=== PATIENT | female | born 1995 ===

== ENCOUNTER 2019-10-24 14:06 | Inpatient (IN) | payer OTHER ==
[2019-10-24 14:41] VITALS: BMI 32.9
[2019-10-24] MEDS ORDERED: Promethazine HCl 25 MG/ML VIAL IM PRN (15:40)
[2019-10-24] MEDS ORDERED: Zolpidem Tartrate 5 MG TAB PO PRN (15:40)
[2019-10-24] MEDS ORDERED: hydrALAZINE 20 MG/ML VIAL SLOW IVP PRN ×2 (15:40→15:43)
[2019-10-24] MEDS ORDERED: Ondansetron PF 4 MG/2 ML Vial IVP PRN (15:40)
[2019-10-24] MEDS ORDERED: Docusate 100 MG CAP PO PRN (15:40)
[2019-10-24] MEDS: Lactated Ringer's 1,000 ML IV SCH ×2 (16:58→23:24)
[2019-10-24] MEDS: Betamet Acet/Betamet Na Ph 30 MG/5 ML VIAL IM SCH (17:07)
[2019-10-24 17:26] LABS: Hemoglobin 9.8 g/dL (12.0-16.0); Mean Corpuscular HGB CONC 33.4 g/dL (32.0-36.0); Mean Corpuscular Hemoglobin 29.5 pg (27.0-31.0); Mean Corpuscular Volume 88.3 fL (78.0-98.0); Mean Platelet Volume 9.8 fL (7.4-10.4); Platelet Count 192 thou/uL (130-400); RBC Distribution Width 12.5 % (11.5-14.5); Red Blood Cell (RBC) Count 3.33 mill/uL (4.20-5.40); White Blood Cell (WBC) Count 9.8 thou/uL (4.8-10.8)
[2019-10-24 17:51] LABS: ALT (SGPT) Less than 7 U/L (8-55); AST (SGOT) 11 U/L (5-34); Alkaline Phosphatase 213 U/L (40-110); Anion Gap 12 mmol/L (10-20); BUN (Urea Nitrogen) 8 mg/dL (7.0-18.7); Bilirubin, Total 0.3 mg/dL (0.2-1.2); Calc. Creatinine Clearance 166 mL/min (70-130); Calcium 8.4 mg/dL (7.8-10.44); Carbon Dioxide 20 mmol/L (22-29); Chloride 109 mmol/L (98-107); Estimated GFR-MDRD Greater than 90; Glucose 88 mg/dL (70-105); Potassium 3.6 mmol/L (3.5-5.1); Sodium 137 mmol/L (136-145)
[2019-10-24 18:14] LABS: HBSAg Index 0.18 S/CO (0-0.99); Hep B Surf Ag Non-Reactive S/CO (NonReactive); Syphilis Antibody Nonreactive (Nonreactive); Syphilis Antibody Index 0.03 S/CO (<1.00 Non-Reactive)
[2019-10-24] MEDS: Acetaminophen 500 MG TAB PO PRN (18:59)
[2019-10-25] MEDS: Acetaminophen 500 MG TAB PO PRN ×2 (07:33→16:32)
[2019-10-25] MEDS ORDERED: Prenatal Vitamin 1 TAB PO SCH (09:00)
--- NOTE | 2019-10-25 13:17 | PDOC.LDHP ---
Labor and Delivery H&P HPI: 24 y/o at 32 and 6/7 weeks presents from clinic after 149/95 BP and 2+ urine protein. Patient has a history of eclampsia last with stat c- section. She mentions some headaches over the weekend, and not feeling herself. She is being admitted for preeclamsia labs and in-patient steroid course for preeclampsia in this term . She was taking ASA 81mg up to this point as prophylaxis. Current gestational age (weeks): 32 Due date: 12/13/19 Grav: 2 Para: 1 Current complications: preeclampsia without severe features Abnormal US findings: No Current medications: pre- vitamins Previous surgical history: low tranverse CS Allergies/Adverse Reactions: Allergies Allergy/AdvReac Type Severity Reaction Status Date / Time No Known Allergies Allergy Verified 10/24/19 14:38 Social history: none - Physical Exam Vital signs reviewed and normal: yes General: NAD, resting Heart: RRR Lungs: CTAB Abdomen: gravid Extremeties: no edema FHT: category 1 - Assessment 1. Di/Di Twins at 32 and 6/7 weeks 2. Suspected Preeclampsia without severe features 3. Hx of Eclampsia - Plan -: 1. Admit for Preeclampsia testing 2. BMZ course ordered x 2 doses 3. Repeat BPP in the morning 4. Repeat planned for delivery when indicated
--- NOTE | 2019-10-25 14:07 | ULT ---
BIOPHYSICAL PROFILE: 10/25/19 HISTORY: Twin with pre-eclampsia. TECHNIQUE: Multiplanar carter scale and color Doppler images were obtained in a transabdominal ultrasound. FINDINGS: heart rates were detected at 130 beats per minute in baby A which is seen posteriorly and baby B at 125 beats per minute which is seen anteriorly. Baby A and baby B both scored a 6 of 8 on biophysical profile with a 0 given for tone. NANETTE is 6 .5 cm, which is normal. IMPRESSION: Biophysical profile of 6 of 8 for baby A and baby B. POS: [facility]
[2019-10-25] MEDS: Lactated Ringer's 1,000 ML IV SCH (16:32)
[2019-10-25] MEDS ORDERED: Magnesium Sulfate 20 gm/500 ml 20 GM/500 ML BAG ONE (17:12)
[2019-10-25] MEDS: Betamet Acet/Betamet Na Ph 30 MG/5 ML VIAL IM SCH (17:28)
[2019-10-25] MEDS ORDERED: Calcium Gluc 4.6 MEQ/10 ML (100 MG/ML) SLOW IVP PRN (17:57)
[2019-10-25] MEDS ORDERED: Magnesium Sulfate 20 GM/WATER 500 ML BAG IVPB SCH (18:00)
--- NOTE | 2019-10-25 18:07 | PDOC.LDPN ---
Labor & Delivery Progress Note - Subjective Subjective: comfortable - Objective Vital signs reviewed and normal: yes General: NAD, resting Uterine fundus: non tender -: Patient has complained of worsening headache today, which has not improved with Tylenol or eating. She notes this is a very similar onset to her last eclamptic seizure. We will go ahead and start Magnesium Sulfate 4g load, 2g/hr, and try and finish out 48 hour steroid window. Repeat is tentatively scheduled for 1700 tomorrow.
[2019-10-25 18:37] LABS: SARS-CoV-2 MS2 Positive; SARS-CoV-2 N Gene Negative; SARS-CoV-2 S Gene Negative; SARS-CoV-2 orf1ab Negative
[2019-10-25] MEDS ORDERED: Bicitra 30 ML UDCUP ONE (20:54)
[2019-10-25] MEDS ORDERED: MORPHINE 5 MG/10 ML PF VIAL ONE (20:55)
[2019-10-25] MEDS ORDERED: Fentanyl 100 MCG/2 ML VIAL ONE (20:55)
[2019-10-25] MEDS ORDERED: Oxytocin 10 UNITS/ML VIAL ONE (20:56)
[2019-10-25] MEDS ORDERED: Ondansetron PF 4 MG/2 ML Vial ONE (20:56)
[2019-10-25] MEDS ORDERED: PHENYLEPHRINE-NS 100 MCG/ML 10 ML SYRINGE ONE (20:56)
[2019-10-25] MEDS ORDERED: CEFAZOLIN 2 GM in Premix Bag 1 BAG IVPB SCH (21:00)
--- NOTE | 2019-10-25 21:05 | PDOC.LDPN ---
Labor & Delivery Progress Note -: Patient continues to have severe, unrelenting headache, despite tylenol, eating , sleep, etc. Around 720pm I was notified the patient began having additional swelling of her lower extremities and new onset brisk, abnormal deep tendon reflexes. This was confirmed by a second nurse, who had checked them earlier and verified a very significant, new abnormal finding. Once again, this patient' s last ended with an eclamptic seizure and stat , with a very similar onset of symptoms. Thus, after further team discussion about this patient's care, we have decided to proceed with a controlled now, with magnesium sulfate running, and double NICU set-up in place in an organized ready fashion. COVID testing has returned negative today for this patient. The current plan is to give a 24 hour magnesium "recovery" course in the post- period.
[2019-10-25] MEDS ORDERED: Promethazine HCl 25 MG/ML VIAL IM PRN ×2 (21:22→22:33)
[2019-10-25] MEDS ORDERED: Naloxone HCl 0.4 mg/ml Vial IV PRN (21:22)
[2019-10-25] MEDS ORDERED: Ondansetron HCl/PF 4 MG/2 ML Vial IVP PRN (21:22)
[2019-10-25] MEDS ORDERED: Ondansetron PF 4 MG/2 ML Vial IVP PRN ×2 (21:22→22:33)
[2019-10-25] MEDS ORDERED: Naloxone HCl 0.4 mg/ml Vial IVP PRN ×2 (21:22)
[2019-10-25] MEDS ORDERED: Promethazine HCl 25 MG SUPP PR PRN (21:22)
[2019-10-25] MEDS ORDERED: Ketorolac Tromethamine 30 MG/ML VIAL IVP PRN (21:22)
[2019-10-25] MEDS ORDERED: Communication Order-Pharmacy FS SCH (21:30)
[2019-10-25] MEDS ORDERED: Bisacodyl 10 MG SUPP PR PRN (22:33)
[2019-10-25] MEDS ORDERED: hydrALAZINE 20 MG/ML VIAL SLOW IVP PRN (22:33)
[2019-10-25] MEDS ORDERED: diphenhydrAMINE 25 MG CAP PO PRN (22:33)
[2019-10-25] MEDS ORDERED: Misoprostol 200 MCG TAB PR PRN (22:33)
[2019-10-25] MEDS ORDERED: NS / Oxytocin 40 units/1000ml 1,000 ML IV SCH (22:45)
[2019-10-25] MEDS: Acetaminophen 650 MG Suppository PR SCH (23:00)
[2019-10-26] MEDS: diphenhydrAMINE 50 MG/ML VIAL IVP PRN ×4 (01:15→14:35)
[2019-10-26] MEDS: Magnesium Sulfate 20 gm/500 ml 20 GM/500 ML BAG IVPB SCH ×2 (01:15→12:06)
[2019-10-26] MEDS ORDERED: Naloxone HCl 0.4 mg/ml Vial IV SCH (03:00)
[2019-10-26] MEDS: Lactated Ringer's 1,000 ML IV SCH ×2 (05:31→19:02)
[2019-10-26] MEDS: Acetaminophen 650 MG Suppository PR SCH (05:34)
[2019-10-26] MEDS: Ibuprofen 800 MG TAB PO SCH ×3 (05:35→22:55)
[2019-10-26 06:16] LABS: Hemoglobin 9.7 g/dL (12.0-16.0); Mean Corpuscular HGB CONC 33.6 g/dL (32.0-36.0); Mean Corpuscular Hemoglobin 30.2 pg (27.0-31.0); Mean Corpuscular Volume 89.9 fL (78.0-98.0); Mean Platelet Volume 10.1 fL (7.4-10.4); Platelet Count 215 thou/uL (130-400); RBC Distribution Width 12.4 % (11.5-14.5); Red Blood Cell (RBC) Count 3.21 mill/uL (4.20-5.40); White Blood Cell (WBC) Count 23.1 thou/uL (4.8-10.8)
[2019-10-26] MEDS ORDERED: Adacel (T-DAP) 0.5 ML SYRINGE IM ONE (09:00)
[2019-10-26] MEDS ORDERED: Measles/Mumps/Rubella 10 MCG/0.5 ML VIAL SC ONE (09:00)
[2019-10-26] MEDS ORDERED: Varicella virus, LIVE 0.5 ML VIAL SC ONE (09:00)
[2019-10-26] MEDS ORDERED: Zolpidem Tartrate 5 MG TAB PO PRN (09:30)
--- NOTE | 2019-10-26 14:36 | PDOC.PP ---
Post Progress Note Post Day #: 1 PO intake tolerated: yes Flatus: yes Ambulation: yes Weight Weight 180 lb - Physical Examination General: NAD Cardiovascular: no m/r/g, RRR Respiratory: clear to auscultation bilaterally, non-labored breathing Abdominal: + bowel sounds, lochia, appropriately TTP Extremities: negative homans (B) Skin: CS incision dry & intact, no rash Neurological: no gross focal deficits Psychiatric: A&Ox3, normal affect (We will plan to DC Magnesium Sulfate after 24 hours, DC cheung, and advance diet and ambulation.) Result Diagrams: 10/26/19 06:04 10/24/19 17:14 Additional Labs: Post Labs Blood Type O POSITIVE 10/24/19 17:38 Hep Bs Antigen Non-Reactive S/CO (NonReactive) 10/24/19 17:15
[2019-10-26] MEDS: Docusate Calcium (SURFAK) 240 MG CAP PO SCH ×2 (15:55→21:00)
[2019-10-27] MEDS: Ibuprofen 800 MG TAB PO SCH ×3 (05:25→22:16)
[2019-10-27] MEDS: Docusate Calcium (SURFAK) 240 MG CAP PO SCH ×2 (09:17→22:16)
--- NOTE | 2019-10-27 12:01 | PDOC.PP ---
Post Progress Note Post Day #: 2 PO intake tolerated: yes Flatus: yes Ambulation: yes Vital Signs (12 hours) Temp Pulse Resp BP Pulse Ox 10/27/19 10:00 99.0 F 83 16 136/84 10/27/19 09:07 92 10/27/19 09:00 78 169/93 H 10/27/19 08:30 97.9 F 72 18 139/95 H 98 Weight Weight 180 lb - Physical Examination General: NAD Cardiovascular: no m/r/g, RRR Respiratory: clear to auscultation bilaterally, non-labored breathing Abdominal: + bowel sounds, lochia, no distention Extremities: negative homans (B) Skin: CS incision dry & intact, no rash Neurological: no gross focal deficits Psychiatric: A&Ox3, normal affect Result Diagrams: 10/26/19 06:04 10/24/19 17:14 Additional Labs: Post Labs Blood Type O POSITIVE 10/24/19 17:38 Hep Bs Antigen Non-Reactive S/CO (NonReactive) 10/24/19 17:15
[2019-10-27] MEDS: HYDROcodone/Acetaminophen 5/325 mg Tablet PO PRN ×3 (12:14→20:19)
[2019-10-27] MEDS: Simethicone Chewable 80 MG TAB PO PRN (12:16)
--- NOTE | 2019-10-27 13:20 | OP ---
DATE OF PROCEDURE: 10/25/2019 TIME: 2138 hours central daylight savings time. PREOPERATIVE DIAGNOSES: 1. Intrauterine with dizygotic diamniotic dichorionic twin . 2. Preeclampsia with severe features. 3. History of eclampsia resulting in stat section. POSTOPERATIVE DIAGNOSES: 1. Intrauterine with dizygotic diamniotic dichorionic twin . 2. Preeclampsia with severe features. 3. History of eclampsia resulting in stat section. PROCEDURE PERFORMED: Repeat low-transverse section for preeclampsia with severe features. FINDINGS: Baby A 1755 g or 3 pounds 14 ounces, Apgars of 8, 7, and 9. Baby B, viable male infant weighing 1730 g or 3 pounds 13 ounces, Apgars of 7 and 8. QUANTITATIVE BLOOD LOSS: 525 mL. COMPLICATIONS: None. DESCRIPTION OF PROCEDURE: The patient was consented and taken back to the operating room where spinal anesthesia was found to be adequate. She was then prepped and draped in the normal sterile fashion. A timeout was performed by the entire operative team. The incision was then marked with a marking pen tested using sharp pickups. An incision was then made with a scalpel. The incision was carried through the adipose tissue down to the underlying rectus fascia using both sharp dissection as well as cautery. Once the fascia was identified, it was incised in the midline and then the fascial incision was carried through in both lateral directions using sharp as well as cautery dissection techniques. Next, the superior aspect of the rectus fascia was grasped with 2 Kaushik clamps, which was tented up and the rectus muscles were dissected off using blunt dissection as well as cautery dissection. Similarly, the inferior aspect of the fascial incision was grasped with 2 Kaushik clamps, tented up and the rectus muscles were dissected off bluntly as well as sharply. Next, the rectus muscles were in the midline and the peritoneum identified. The peritoneum was then carefully grasped with 2 hemostats and entered sharply. The peritoneal incision was extended superiorly and inferiorly and bladder blade was placed in the lower abdomen. At this point, the uterus was identified and the bladder flap was then developed using pickups with teeth as well as Metzenbaum scissors in both lateral directions. The bladder flap was then dissected downwards using the bat lathe operator's finger as well as Metzenbaum scissors. The bladder blade was replaced. The lower uterine segment was then identified and entered sharply using a clean scalpel. The uterine incision was then dissected downwards until thin layer of muscle remained and this was entered bluntly using a hemostat to avoid any injury to the baby. The uterine incision was then stretched using two fingers in both lateral directions. An amniotomy was performed artificially using a hemostat and Baby A was delivered in a vertex presentation without difficulty. The mouth and nose were bulb suctioned and baby was handed to the first NICU team. Palpation of the second amniotic membrane revealed a second baby B in a vertex presentation. Those membranes were artificially ruptured and baby B was also delivered in a vertex presentation. Mouth and nose were bulb suctioned. Cord was clamped and cut. Baby was handed to the second NICU team waiting. Next, the uterus was exteriorized, cleared of all clots and debris and the uterine incision was repaired with #1 Monocryl in a running locking fashion. A 2nd suture of the same type was used to obtain complete hemostasis at the uterine incision. The bladder flap was reapproximated using 3-0 Monocryl. Next, patient's left and right adnexa were inspected and appeared to be within normal limits. The posterior cul-de-sac was blotted dry and hemostasis assured. One more look at the uterine incision demonstrated hemostasis. Next, the uterus was replaced back within the abdomen. The peritoneum was reapproximated using 2-0 Monocryl without difficulty. The rectus muscles were then allowed to come back together and 0 chromic was used to aid in reapproximation of the muscle as necessary. The rectus fascia was then reapproximated in a running fashion using 0 Vicryl suture. The adipose tissue was then examined and appeared to be well approximated without any obvious separations. Finally, the skin was reapproximated with 3-0 Monocryl on a Eitan needle without difficulty and Dermabond adhesive was applied to the skin. Once the glue was dry, the drapes were removed and the patient was transferred to an ambulatory bed where she was taken to recovery awake and in stable condition. Sponge, lap, and needle counts were correct x3. Job ID: [id number] MTDD
[2019-10-27] MEDS ORDERED: NIFEdipine XL 30 MG TAB PO SCH (14:00)
[2019-10-28] MEDS: HYDROcodone/Acetaminophen 5/325 mg Tablet PO PRN ×4 (03:18→21:56)
[2019-10-28] MEDS: Ibuprofen 800 MG TAB PO SCH ×3 (06:36→21:55)
[2019-10-28] MEDS: Docusate Calcium (SURFAK) 240 MG CAP PO SCH ×2 (09:24→21:55)
--- NOTE | 2019-10-28 13:17 | PDOC.PP ---
Post Progress Note Post Day #: 3 PO intake tolerated: yes Flatus: yes Ambulation: yes Vital Signs (12 hours) Temp Pulse Resp BP Pulse Ox 10/28/19 12:00 97.9 F 89 20 116/72 10/28/19 09:20 98.1 F 97 20 122/82 97 Weight Weight 180 lb - Physical Examination General: NAD Cardiovascular: no m/r/g, RRR Respiratory: clear to auscultation bilaterally, non-labored breathing Abdominal: + bowel sounds, lochia, no distention, appropriately TTP Extremities: negative homans (B) Skin: CS incision dry & intact, no rash Neurological: no gross focal deficits Psychiatric: A&Ox3, normal affect (Will DC Procardia CL 30mg. Plan to DC to boarding status tomorrow.) Result Diagrams: 10/26/19 06:04 10/24/19 17:14 Additional Labs: Post Labs Blood Type O POSITIVE 10/24/19 17:38 Hep Bs Antigen Non-Reactive S/CO (NonReactive) 10/24/19 17:15
[2019-10-29] MEDS: Ibuprofen 800 MG TAB PO SCH (06:02)
[2019-10-29] MEDS: Docusate Calcium (SURFAK) 240 MG CAP PO SCH (10:16)
[2019-10-29] MEDS: Simethicone Chewable 80 MG TAB PO PRN (10:16)
[2019-10-29] MEDS: HYDROcodone/Acetaminophen 5/325 mg Tablet PO PRN (10:17)
[2019-10-29 10:19] VITALS: BP 138/88; TEMP 98.2
== END 2019-10-29 10:42 | disposition home or self-care (01) | DRG 788 ==
LOC: L&D/OP 14:06 → L&D 15:41 → 3SW 10-27 08:43
PROVIDERS: ADMIT Obstetrics & Gynecology; ATTEND Obstetrics & Gynecology
PROC: 10D00Z1 Extraction of Products of Conception, Low, Open Approach (ICD-10-PCS; principal; 2019-10-25)
DX: O14.14 Severe pre-eclampsia complicating childbirth (principal); O30.043 Twin pregnancy, dichorionic/diamniotic, third trimester; Z3A.32 32 weeks gestation of pregnancy; Z37.2 Twins, both liveborn
CPT/HCPCS: 36415; 51702; 76819; 80053; 82570; 83735; 84156; 85027; 86780; 86850; 86900; 86901; 87340; 87635; 88307; 99285; J0360; J0690; J0702; J1200; J1885; J2274; J2310; J2405; J2590; J3010; J3475; U0003

== ENCOUNTER 2023-09-08 16:26 | Emergency (ER) | payer OTHER ==
[2023-09-08] MEDS ORDERED: Bacitracin 1 PK ONE (17:02)
== END 2023-09-08 17:10 | disposition home or self-care (01) ==
LOC: ERS 16:26
DX: S01.01XA Laceration without foreign body of scalp, initial encounter (principal); W22.8XXA Striking against or struck by other objects, initial encounter
CPT/HCPCS: 99282